=== PATIENT | female | born 1960 | race Caucasian/White ===

== ENCOUNTER 2019-10-09 10:36 | Day surgery (SDC) | payer OTHER ==
[~2019-10-09] VITALS: Ht 175.3 cm; Wt 84.4 kg
[2019-10-09 11:14] LABS: BASOPHILS # (AUTO) 0.05 x10^3/uL (0-0.1); BASOPHILS % (AUTO) 1 % (0-1); EOSINOPHILS # (AUTO) 0.08 x10^3/uL (0-0.4); EOSINOPHILS % (AUTO) 1 % (1-7); LYMPHOCYTES # (AUTO) 2.13 x10^3/uL (1-3.4); LYMPHOCYTES % (AUTO) 34 % (22-44); MD NO; MEAN CORPUSCULAR HEMOGLOBIN 29.9 pg (27.0-34.8); MEAN CORPUSCULAR HGB CONC 32.4 g/dL (32.4-35.8); MEAN CORPUSCULAR VOLUME 92.4 fL (80-100); MEAN PLATELET VOLUME 7.9 fL (7.4-10.4); MONOCYTES # (AUTO) 0.49 x10^3/uL (0.2-0.8); MONOCYTES % (AUTO) 8 % (2-9); NEUTROPHILS # (AUTO) 3.49 x10^3/uL (1.8-6.8); NEUTROPHILS % (AUTO) 56 % (42-75); PLATELET COUNT 294 x10^3/uL (130-400); RED BLOOD COUNT 4.68 x10^6/uL (3.82-5.3); RED CELL DISTRIBUTION WIDTH 13.3 % (9.6-15.2)
[2019-10-09 11:21] VITALS: BP 122/65
[2019-10-09 11:27] LABS: ANION GAP 5 mmol/L (5-15); CALCIUM 9.7 mg/dL (8.5-10.1); CHLORIDE 109 mmol/L (98-107); CREATININE 0.98 mg/dL (0.55-1.02)
[2019-10-09] MEDS ORDERED: MIDAZOLAM 1 MG/ML, 5ML ONE (20:42)
[2019-10-09] MEDS ORDERED: FENTANYL PF 100 MCG/2ML ONE (20:43)
[2019-10-09] MEDS ORDERED: HEPARIN 1,000 UNITS/ML, 10ML ONE (20:43)
[2019-10-09] MEDS ORDERED: VERAPAMIL 2.5 MG/ML, 2ML ONE (20:43)
[2019-10-09] MEDS ORDERED: LIDOCAINE-MPF 1%, 5ML ONE (20:43)
[2019-10-09] MEDS ORDERED: DIPHENHYDRAMINE 50 MG/ML, 1ML ONE (21:08)
== END 2019-10-09 15:31 | disposition home or self-care (01) ==
LOC: CACL 10:36
PROVIDERS: ATTEND Internal Medicine Cardiovascular Disease
DX: I27.9 Pulmonary heart disease, unspecified (principal); G47.30 Sleep apnea, unspecified
CPT/HCPCS: 36415; 80048; 85025; 93451; 99156; C1769; C1894; J1200; J2250; J3010; J1644